=== PATIENT | female | born 1940 | race American Indian/Alaskan Native ===

== ENCOUNTER 2017-06-13 10:22 | Emergency (ER) | payer OTHER ==
[2017-06-13 10:22] VITALS: BMI 30.8
[2017-06-13 10:33] VITALS: PULSE 103; TEMP 97; O2SAT 99
[2017-06-13] MEDS ORDERED: Tetracaine 0.5% Ophth 2 ML BOTTLE OS ONE (11:03)
[2017-06-13 11:04] VITALS: BP 125/61
--- NOTE | 2017-06-13 11:06 | ED PDOC ---
HPI: Eye Injury/Pain Time Seen by Provider: 06/13/17 10:51 Chief Complaint (Nursing): Eye Problem Chief Complaint (Provider): left eye redness History Per: Patient History/Exam Limitations: no limitations Onset/Duration Of Symptoms: Days (1) Current Symptoms Are (Timing): Still Present Severity: Moderate Eye: 1 - subconjunctival hemorrhage (SH) 2 - SH Wears Contact Lens?: No Associated Symptoms: Itching. denies: Pain, Decreased Vision, Swelling, FB Sensation, Discharge From Eye Additional Complaint(s): 77yo female states had a coughing fit overnight tuesday, woke yesterday with a little redness to left eye and this morning was worse. Denies change in vision, pain, FB sensation, trauma, use of blood thinning medications other than [id number] , swelling or fever. Uses glasses, no contacts. Past Medical History Reviewed: Historical Data, Nursing Documentation Vital Signs: Last Vital Signs Temp 97 F L 06/13/17 10:32 Pulse 103 H 06/13/17 10:32 Resp BP 162/84 H 06/13/17 10:32 Pulse Ox 99 06/13/17 10:32 - Medical History PMH: Anemia, Diabetes, HTN, Chronic Kidney Disease - Family History Family History: States: Unknown Family Hx - Home Medications Home Medications: Ambulatory Orders Medication Instructions Recorded Amlodipine Besylate/Benazepril 1 cap PO DAILY 03/24/16 [Lotrel 10-20 mg Capsule] Aspirin [Ecotrin] 81 mg PO DAILY 03/24/16 Atorvastatin [Lipitor] 40 mg PO HS 03/24/16 Insulin Glargine, Recombina 34 unit SC QA 03/24/16 [Lantus] Insulin Glargine, Recombina 36 unit SC 03/24/16 [Lantus] Multivitamin [Multi-Vitamin Daily] 1 tab PO DAILY 03/24/16 Omeprazole [Prilosec] 40 mg PO DAILY 03/24/16 SITagliptin [Januvia] 100 mg PO DAILY 03/24/16 Torsemide [Demadex] 5 mg PO DAILY 03/24/16 - Allergies Allergies/Adverse Reactions: Allergies Allergy/AdvReac Type Severity Reaction Status Date / Time codeine Allergy Mild RASH Verified 06/13/17 10:57 Review of Systems ROS Statement: Except As Marked, All Systems Reviewed And Found Negative Constitutional: Negative for: Fever, Chills Eyes: Positive for: Conjunctivae Inflammation. Negative for: Pain, Vision Change, Eyelid Inflammation ENT: Negative for: Ear Pain, Ear Discharge, Nose Discharge, Throat Pain, Throat Swelling Cardiovascular: Negative for: Chest Pain, Palpitations Respiratory: Negative for: Cough, Shortness of Breath Gastrointestinal: Negative for: Abdominal Pain Skin: Negative for: Rash, Lesions, Jaundice Neurological: Negative for: Weakness, Numbness Psych: Negative for: Anxiety Physical Exam - Reviewed Nursing Documentation Reviewed: Yes Vital Signs Reviewed: Yes - Physical Exam Appears: Positive for: Well, Non-toxic, No Acute Distress Head Exam: Positive for: ATRAUMATIC, NORMAL INSPECTION, NORMOCEPHALIC Skin: Positive for: Normal Color, Warm, DRY Eye Exam: Positive for: EOMI, PERRL, Other (moderate subconjunctival hemorrhage , cornea quiet, pupil reactive). Negative for: Periorbital swelling, Periorbital tenderness, Scleral icterus ENT: Positive for: Normal ENT Inspection Neck: Positive for: Normal, Painless ROM Respiratory: Negative for: Respiratory Distress Gastrointestinal/Abdominal: Positive for: Normal Exam, Bowel Sounds, Soft Back: Positive for: Normal Inspection Extremity: Positive for: Normal ROM Neurologic/Psych: Positive for: Alert, Oriented - ECG O2 Sat by Pulse Oximetry: 99 Medical Decision Making Medical Decision Making: tetracaine opth 2 gtt to OS given w fluroscein stain no uptake on cornea. Precautions for straining, gentle rinse eye saline, followup ophtho 3 days. Disposition - Clinical Impression Clinical Impression: Subconjunctival hemorrhage - Patient ED Disposition Is Patient to be Admitted: No Counseled Patient/Family Regarding: Studies Performed, Diagnosis, Need For Followup - Disposition Referrals: Shayne Nieto MD [Staff Provider] - Disposition: Routine/Home Disposition Time: 11:01 Condition: STABLE Additional Instructions: Followup with eye doctor in 3 days for re-evaluation. Return to ER for any worse or new symptoms. Instructions: Subconjunctival Hemorrhage (ED)
== END 2017-06-13 11:34 | disposition home or self-care (01) ==
LOC: H.ER 10:22
DX: H11.32 Conjunctival hemorrhage, left eye (principal)

== ENCOUNTER 2018-03-07 07:51 | Emergency (ER) | payer MEDICAID, OTHER ==
[2018-03-07 07:57] VITALS: BMI 29.2
--- NOTE | 2018-03-07 08:16 | ED PDOC ---
HPI: Eye Injury/Pain Time Seen by Provider: 03/07/18 08:09 History Per: Patient Onset/Duration Of Symptoms: Days (2) Current Symptoms Are (Timing): Still Present Severity: Mild Pain Scale Rating Of: 0 Additional Complaint(s): Redness right eye x 2 days. No pain, no injury, no change in vision, no discharge. Takes daily ASA 81 mg Past Medical History Vital Signs: Last Vital Signs Temp 98 F 03/07/18 07:56 Pulse 104 H 03/07/18 07:56 Resp BP 150/80 03/07/18 07:56 Pulse Ox 99 03/07/18 07:56 - Medical History PMH: Anemia, Diabetes, HTN, Chronic Kidney Disease - Family History Family History: States: Unknown Family Hx - Home Medications Home Medications: Ambulatory Orders Medication Instructions Recorded Amlodipine Besylate/Benazepril 1 cap PO DAILY 03/24/16 [Lotrel 10-20 mg Capsule] Aspirin [Ecotrin] 81 mg PO DAILY 03/24/16 Atorvastatin [Lipitor] 40 mg PO HS 03/24/16 Insulin Glargine, Recombina 34 unit SC QA 03/24/16 [Lantus] Insulin Glargine, Recombina 36 unit SC HS 03/24/16 [Lantus] Multivitamin [Multi-Vitamin Daily] 1 tab PO DAILY 03/24/16 Omeprazole [Prilosec] 40 mg PO DAILY 03/24/16 SITagliptin [Januvia] 100 mg PO DAILY 03/24/16 Torsemide [Demadex] 5 mg PO DAILY 03/24/16 Tobramycin 0.3% [Tobramycin 5 Ml] 1 drop OP TID #1 bottle 03/07/18 - Allergies Allergies/Adverse Reactions: Allergies Allergy/AdvReac Type Severity Reaction Status Date / Time codeine Allergy Mild RASH Verified 06/13/17 10:57 Review of Systems Constitutional: Negative for: Fever Eyes: Positive for: Redness. Negative for: Pain, Vision Change Physical Exam - Physical Exam Appears: Positive for: Non-toxic, No Acute Distress Eye Exam: Positive for: EOMI, PERRL, Other (Subconjunctival hemorrhage. No blood ant chamber, no hyphema) - ECG O2 Sat by Pulse Oximetry: 99 Disposition - Clinical Impression Clinical Impression: Subconjunctival hemorrhage of right eye - Patient ED Disposition Is Patient to be Admitted: No Counseled Patient/Family Regarding: Diagnosis, Need For Followup, Rx Given - Disposition Referrals: Shayne Nieto MD [Staff Provider] - Disposition: Routine/Home Disposition Time: 08:16 Condition: FAIR Prescriptions: Tobramycin 0.3% [Tobramycin 5 Ml] 1 drop OP TID #1 bottle Instructions: Subconjunctival Hemorrhage
[2018-03-07 09:23] VITALS: BP 141/69; PULSE 74; RESP 18; TEMP 98.5; O2SAT 97
== END 2018-03-07 09:24 | disposition home or self-care (01) ==
LOC: H.ER 07:51
DX: H11.31 Conjunctival hemorrhage, right eye (principal)